=== PATIENT | male | born 1975 ===

== ENCOUNTER 2019-12-26 09:37 | Outpatient (CLI) | payer OTHER ==
[~2019-12-26 09:37] MED LIST: NORVASC2.5 M1; TEMOVATE45 GM; TORADOL60 MG IM; VOLTAREM 50 MG PO
== END 2019-12-26 09:45 | disposition home or self-care (01) ==
LOC: LAB 09:37
DX: J11.1 Influenza due to unidentified influenza virus with other respiratory manifestations (principal); R05 Cough

== ENCOUNTER 2020-05-12 08:18 | Outpatient (CLI) | payer OTHER | END 2020-05-12 15:00 | disposition home or self-care (01) | LOC: LAB 08:18 | PROVIDERS: ATTEND General Practice | DX: I10 Essential (primary) hypertension (principal); L40.8 Other psoriasis; Z00.8 Encounter for other general examination; Z12.11 Encounter for screening for malignant neoplasm of colon; R53.83 Other fatigue; M25.50 Pain in unspecified joint ==

== ENCOUNTER 2020-06-01 13:35 | Outpatient (CLI) | payer OTHER | END 2020-06-01 13:42 | disposition home or self-care (01) | LOC: RAD 13:35 | DX: M54.6 Pain in thoracic spine (principal); M54.5 Low back pain ==

== ENCOUNTER 2020-08-07 10:00 | Outpatient (CLI) | payer OTHER | END 2020-08-07 15:00 | disposition home or self-care (01) | LOC: PPH VACUNA 10:00 | DX: Z23 Encounter for immunization (principal) ==

== ENCOUNTER 2021-07-02 06:16 | Outpatient (CLI) | payer OTHER | END 2021-07-02 06:17 | disposition home or self-care (01) | LOC: LAB 06:16 | PROVIDERS: ATTEND Internal Medicine Cardiovascular Disease | DX: I10 Essential (primary) hypertension (principal); E03.8 Other specified hypothyroidism; E55.9 Vitamin D deficiency, unspecified; D64.89 Other specified anemias; E78.89 Other lipoprotein metabolism disorders ==

== ENCOUNTER → 2021-08-20 | Outpatient (CLI) | payer OTHER | END | disposition home or self-care (01) | LOC: PPH VACUNA 08:00 | PROVIDERS: ATTEND Emergency Medicine Pediatric Emergency Medicine | DX: Z23 Encounter for immunization (principal) ==

== ENCOUNTER 2021-08-29 15:58 | Outpatient (CLI) | payer OTHER | END 2021-08-29 15:59 | disposition home or self-care (01) | LOC: PPH VACUNA 15:58 | PROVIDERS: ATTEND Emergency Medicine Pediatric Emergency Medicine | DX: Z23 Encounter for immunization (principal) ==

== ENCOUNTER 2021-09-02 13:01 | Outpatient (CLI) | payer OTHER | END 2021-09-02 13:04 | disposition home or self-care (01) | LOC: NUCLEAR 13:01 | PROVIDERS: ATTEND Internal Medicine Cardiovascular Disease | DX: I11.9 Hypertensive heart disease without heart failure (principal) ==

== ENCOUNTER → 2021-09-26 06:13 | Outpatient (CLI) | payer OTHER | END | disposition home or self-care (01) | LOC: LAB 06:13 | PROVIDERS: ATTEND Internal Medicine Cardiovascular Disease | DX: E03.8 Other specified hypothyroidism (principal); E78.2 Mixed hyperlipidemia; I10 Essential (primary) hypertension ==

== ENCOUNTER 2021-11-14 05:05 | Emergency (ER) | payer OTHER ==
[~2021-11-14] VITALS: Ht 175.3 cm; Wt 79.4 kg
== END 2021-11-14 10:44 | disposition home or self-care (01) ==
LOC: ER 05:05
DX: J22 Unspecified acute lower respiratory infection (principal); R06.02 Shortness of breath; R50.9 Fever, unspecified; Z11.52 Encounter for screening for COVID-19

== ENCOUNTER → 2022-02-20 08:32 | Outpatient (CLI) | payer OTHER | END | disposition home or self-care (01) | LOC: LAB 08:32 | PROVIDERS: ATTEND Internal Medicine Cardiovascular Disease | DX: E03.9 Hypothyroidism, unspecified (principal); R73.01 Impaired fasting glucose; I10 Essential (primary) hypertension; R69 Illness, unspecified; E78.9 Disorder of lipoprotein metabolism, unspecified ==

== ENCOUNTER 2022-07-16 05:59 | Emergency (ER) | payer OTHER ==
[~2022-07-16] VITALS: Ht 177.8 cm; Wt 88.5 kg
[2022-07-16] MEDS ORDERED: NORVASC5 MG PO (06:10)
== END 2022-07-16 09:15 | disposition home or self-care (01) ==
LOC: ER 05:59
DX: N20.0 Calculus of kidney (principal); R31.9 Hematuria, unspecified

== ENCOUNTER 2022-07-23 08:17 | Outpatient (CLI) | payer OTHER ==
[~2022-07-23 08:17] MED LIST changes: +NORVASC5 MG PO
== END 2022-07-23 08:22 | disposition home or self-care (01) ==
LOC: PPH VACUNA 08:17
PROVIDERS: ATTEND Emergency Medicine Pediatric Emergency Medicine
DX: Z23 Encounter for immunization (principal)

== ENCOUNTER 2022-07-30 06:42 | Outpatient (CLI) | payer OTHER | END 2022-07-30 06:43 | disposition home or self-care (01) | LOC: LAB 06:42 | PROVIDERS: ATTEND Internal Medicine Cardiovascular Disease | DX: E78.5 Hyperlipidemia, unspecified (principal); E03.9 Hypothyroidism, unspecified; I10 Essential (primary) hypertension; D69.6 Thrombocytopenia, unspecified ==

== ENCOUNTER 2022-12-09 08:29 | Outpatient (CLI) | payer OTHER | END 2022-12-09 08:45 | disposition home or self-care (01) | LOC: PPH VACUNA 08:29 | PROVIDERS: ATTEND Emergency Medicine Pediatric Emergency Medicine | DX: Z23 Encounter for immunization (principal) ==

== ENCOUNTER → 2023-01-14 13:45 | Outpatient (CLI) | payer OTHER | END | disposition home or self-care (01) | LOC: LAB 08:51 | DX: E78.5 Hyperlipidemia, unspecified (principal); E03.9 Hypothyroidism, unspecified; I10 Essential (primary) hypertension ==

== ENCOUNTER → 2023-07-16 06:14 | Outpatient (CLI) | payer OTHER | END | disposition home or self-care (01) | LOC: LAB 06:14 | DX: E03.9 Hypothyroidism, unspecified (principal); E78.5 Hyperlipidemia, unspecified; I10 Essential (primary) hypertension; D64.9 Anemia, unspecified; R73.09 Other abnormal glucose ==

== ENCOUNTER 2023-07-23 12:30 | Outpatient (CLI) | payer OTHER | END 2023-07-23 12:45 | disposition home or self-care (01) | LOC: PPH VACUNA 12:30 | PROVIDERS: ATTEND Emergency Medicine Pediatric Emergency Medicine | DX: Z23 Encounter for immunization (principal) | CPT/HCPCS: 90686; G0008 ==

== ENCOUNTER → 2024-03-09 06:06 | Outpatient (CLI) | payer OTHER ==
[2024-03-09 07:19] LABS: PH,URINE 5.5 (5.0-8.0); URINE APPEARANCE Clear; URINE BILIRRUBIN Negative (NEGATIVE); URINE BLOOD Trace; URINE COLOR Yellow; URINE GLUCOSE Negative (NEGATIVE); URINE LEUKOCYTE Negative; URINE NITRATE Negative; URINE PROTEIN Negative (NEGATIVE); URINE UROBILINOGEN 0.2 E.U./dl
[2024-03-09 07:21] LABS: URINE BACTERIA 12.5 uL (0.0-1933); URINE EPITHELIAL CELLS 2.1 uL (0.0-38.8); URINE RBC 5.8 uL (0.0-20.8); URINE WBC 2.9 uL (0.0-23.2)
[2024-03-09 07:51] LABS: HEMATOCRIT 45.2 % (39.0-48.0); MEAN CELL VOLUME 89.3 fL (80.0-100.00); MEAN CORPUSCULAR HEMOGLOBIN 29.7 pg (27.00-32.0); MEAN CORPUSCULAR HGB CONC 33.3 g/dl (32.0-36.0); PLATELET COUNT 293 K/uL (150-450); RED BLOOD COUNT 5.06 M/uL (4.00-6.00); RED CELL DISTRIBUTION WIDTH 13.8 % (11.5-14.5)
[2024-03-09 08:52] LABS: ALBUMIN 3.9 gm/dL (3.4-5.0); BILIRUBIN TOTAL 0.49 mg/dL (0.3-1.2); CALCIUM 9.3 mg/dL (8.5-10.1); CHOL HDL RATIO 3.2 (0-5.0); CREATININE SERUM 0.84 mg/dL (0.70-1.30); GFR 97.94; GLOBULINA 4.1 G/DL (2.4-3.5); POTASSIUM 4.67 mEq/L (3.5-5.1); TSH 0.788 uIU/mL (0.358-3.74)
== END | disposition home or self-care (01) ==
LOC: LAB 06:06
DX: I11.9 Hypertensive heart disease without heart failure (principal); E78.5 Hyperlipidemia, unspecified; E03.9 Hypothyroidism, unspecified; R73.01 Impaired fasting glucose

== ENCOUNTER 2024-08-26 06:06 | Outpatient (CLI) | payer OTHER ==
[2024-08-26 07:23] LABS: HEMATOCRIT 44.9 % (39.0-48.0); HEMOGLOBIN 15.1 g/dL (13-16.00); MEAN CELL VOLUME 89.6 fL (80.0-100.00); MEAN CORPUSCULAR HEMOGLOBIN 30.1 pg (27.00-32.0); MEAN CORPUSCULAR HGB CONC 33.7 g/dl (32.0-36.0); PLATELET COUNT 254 K/uL (150-450); RED BLOOD COUNT 5.01 M/uL (4.00-6.00); RED CELL DISTRIBUTION WIDTH 14.3 % (11.5-14.5)
[2024-08-26 07:24] LABS: PH,URINE 5.5 (5.0-8.0); URINE APPEARANCE Clear; URINE BILIRRUBIN Negative (NEGATIVE); URINE BLOOD Trace; URINE COLOR Yellow; URINE GLUCOSE Negative (NEGATIVE); URINE KETONE Negative (NEGATIVE); URINE LEUKOCYTE Negative; URINE NITRATE Negative; URINE PROTEIN Negative (NEGATIVE); URINE UROBILINOGEN 0.2 E.U./dl
[2024-08-26 07:28] LABS: URINE BACTERIA 11.3 uL (0.0-1933); URINE EPITHELIAL CELLS 4.4 uL (0.0-38.8); URINE RBC 12.6 uL (0.0-20.8)
[2024-08-26 07:31] LABS: URINE CAST 0.15 uL (0.0-1.40)
[2024-08-26 08:29] LABS: ALBUMIN 4.2 gm/dL (3.4-5.0); BILIRUBIN TOTAL 0.89 mg/dL (0.3-1.2); CALCIUM 9.5 mg/dL (8.5-10.1); CREATININE SERUM 0.82 mg/dL (0.70-1.30); GFR 100.28; GLOBULINA 4.1 G/DL (2.4-3.5); POTASSIUM 4.28 mEq/L (3.5-5.1); TOTAL PROTEIN 8.3 gm/dL (6.4-8.2); TSH 1.05 uIU/mL (0.358-3.74)
== END 2024-08-26 06:07 | disposition home or self-care (01) ==
LOC: LAB 06:06
DX: I11.9 Hypertensive heart disease without heart failure (principal); E78.9 Disorder of lipoprotein metabolism, unspecified; E03.9 Hypothyroidism, unspecified; R73.9 Hyperglycemia, unspecified; E64.9 Sequelae of unspecified nutritional deficiency

== ENCOUNTER 2024-08-26 12:00 | Outpatient (CLI) | payer OTHER | END 2024-08-26 12:15 | disposition home or self-care (01) | LOC: PPH VACUNA 12:00 | PROVIDERS: ATTEND Emergency Medicine Pediatric Emergency Medicine | DX: Z23 Encounter for immunization (principal) ==

== ENCOUNTER → 2025-04-12 06:23 | Outpatient (CLI) | payer OTHER ==
[2025-04-12 06:49] LABS: URINE APPEARANCE Clear; URINE BILIRRUBIN Negative (NEGATIVE); URINE BLOOD Trace; URINE COLOR Yellow; URINE GLUCOSE Negative (NEGATIVE); URINE KETONE Negative (NEGATIVE); URINE LEUKOCYTE Negative; URINE NITRATE Negative; URINE PROTEIN Negative (NEGATIVE)
[2025-04-12 06:51] LABS: URINE EPITHELIAL CELLS 1.8 uL (0.0-38.8); URINE RBC 11.3 uL (0.0-20.8)
[2025-04-12 06:52] LABS: URINE BACTERIA 2.4 uL (0.0-1933); URINE CAST 0.14 uL (0.0-1.40)
[2025-04-12 07:00] LABS: BASO % 0.4 % (0.1-1.2); EOS # 0.11 (0.04-0.54); EOS % 1.5 % (0.7-7.0); HEMATOCRIT 45.6 % (40.1-51.0); LYMPH # 2.09 (1.18-3.74); LYMPH % 29.4 % (19.3-53.1); MEAN CORPUSCULAR HEMOGLOBIN 28.7 pg (25.6-32.2); MONO # 0.61 (0.24-0.82); MONO % 8.6 % (4.7-12.5); NEUT # 4.24 (1.56-6.13); NEUT % 59.8 % (34.0-71.1); PLATELET COUNT 285 K/uL (163-369); RED BLOOD COUNT 5.23 M/uL (4.63-6.08); RED CELL DISTRIBUTION WIDTH 13.2 % (11.6-14.4)
[2025-04-12 07:31] LABS: ALBUMIN 3.9 gm/dL (3.4-5.0); BILIRUBIN TOTAL 0.81 mg/dL (0.3-1.2); CALCIUM 9.1 mg/dL (8.5-10.1); CREATININE SERUM 0.84 mg/dL (0.70-1.30); GFR 97.53; POTASSIUM 4.43 mEq/L (3.5-5.1); TOTAL PROTEIN 7.9 gm/dL (6.4-8.2); TSH 0.831 uIU/mL (0.358-3.74)
== END | disposition home or self-care (01) ==
LOC: LAB 06:23
DX: I11.9 Hypertensive heart disease without heart failure (principal); E78.1 Pure hyperglyceridemia; E55.9 Vitamin D deficiency, unspecified; R73.01 Impaired fasting glucose; D64.9 Anemia, unspecified

== ENCOUNTER 2025-09-08 14:00 | Outpatient (CLI) | payer OTHER | END 2025-09-08 14:10 | disposition home or self-care (01) | LOC: PPH VACUNA 14:00 | PROVIDERS: ATTEND Emergency Medicine Pediatric Emergency Medicine | DX: Z23 Encounter for immunization (principal) ==